=== PATIENT | female | born 1955 | race Caucasian/White ===

== ENCOUNTER 2016-12-13 19:10 | Emergency (ER) | payer MEDICAID, OTHER ==
[~2016-12-13] VITALS: Ht 170.2 cm; Wt 101.7 kg
[~2016-12-13 19:10] MED LIST: ASPI81TA82 PO; CARV12.5 PO; GABA300C3 PO; HYDR-3534 PO; LANTUS2P SC; LISI-360 PO; OMEP20TA PO; ONDA4 SL; POLY119S PO; PROM1SUP12 PR; TAB-TAB PO; XANA0.5T PO; XANA1TAB6 PO; Z.0.HUMULIN REGULARU SQ
[2016-12-13 19:19] VITALS: BP 180/92; PULSE 72; RESP 14; TEMP 98.3; O2SAT 98
== END 2016-12-13 19:55 | disposition left against medical advice (07) ==
LOC: PHED 19:10
DX: R06.02 Shortness of breath (principal)
CPT/HCPCS: 99281

== ENCOUNTER 2017-01-09 11:20 | Emergency (ER) | payer OTHER ==
[2017-01-09 11:25] VITALS: BP 170/96; PULSE 80; RESP 16; TEMP 99; O2SAT 95
[2017-01-09] MEDS ORDERED: PANTOPRAZOLE INJ 80 MG in SODIUM CHLORIDE 0.9% INJ 35 ML IV ONE (11:42)
[2017-01-09] MEDS ORDERED: PANTOPRAZOLE INJ 80 MG in SODIUM CHLORIDE 0.9% INJ 100 ML IV SCH (11:42)
[2017-01-09] MEDS ORDERED: SODIUM CHLOR 0.9% 1000 ML INJ 1,000 ML IV SCH (11:42)
[2017-01-09] MEDS ORDERED: ONDANSETRON HCL 4 MG/2 ML VIAL IVP ONE (11:45)
[2017-01-09] MEDS ORDERED: SODIUM CHLORIDE 0.9% FLUSH 10 ML FLUSH IVF PRN (11:45)
--- NOTE | 2017-01-09 11:50 | PD ---
HPI . Hematemesis Chief Complaint: GI Complaint Time Seen by Provider: 11:42 Travel History International Travel<30 days: No Contact w/Intl Traveler<30days: No Traveled to known affect area: No History of Present Illness HPI Patient presents with a three-day history of hematemesis. She states that it started out as brown emesis. Today, it is grossly bloody. She reports approximately 7-8 episodes per day. She denies any change in her stools. She denies any previous history of upper GI bleed. She is already on Protonix, 40 mg twice a day. However, she states that she has never had a previous history of hematemesis. She is not on an anticoagulant. She states that her symptoms have not been improved with Zofran. PFSH Past Medical History Anxiety: Yes Depression: Yes Cancer: Yes (colon which was treated by polypectomy) Cardiovascular Problems: Yes (CAD, HTN) Coronary Artery Disease: Yes Diabetes: Yes Diminished Hearing: No Gastrointestinal Disorders: Yes Hypertension: Yes Menopausal: Yes Past Surgical History Appendectomy: Yes Cholecystectomy: Yes Eye Surgery: Yes (cataract) Genitourinary Surgery: Yes (BLADDER SLING THEN REMOVAL AND REVISION) Hysterectomy: Yes Social History Alcohol Use: No Tobacco Use: Yes (1/2) Substance Use: No Allergies-Medications (Allergen,Severity, Reaction): Coded Allergies: Sulfa (Sulfonamide Antibiotics) (Unverified Allergy, Severe, hives, ) prednisone (Verified Allergy, Severe, HIVES/SOB, 01/09/17) Penicillins (Verified Allergy, Intermediate, RASH, 01/09/17) iodine (Unverified Allergy, Intermediate, palpitations, 01/09/17) potassium iodide (Unverified Allergy, Intermediate, palpitations, 01/09/17) povidone-iodine (Unverified Allergy, Intermediate, palpitations, 01/09/17) sodium iodide (Unverified Allergy, Intermediate, palpitations, 01/09/17) sodium iodide (Unverified Allergy, Intermediate, palpitations, 01/09/17) Reported Meds & Prescriptions Reported Meds & Active Scripts Active Reported Trulance (Plecanatide) 3 Mg Tablet Zofran Odt (Ondansetron Odt) 4 Mg Tab 4 Mg SL Q8HR PRN Carvedilol 25 Mg Tab 25 Mg PO BID Fosinopril (Fosinopril Sodium) 20 Mg Tab 20 Mg PO DAILY Pantoprazole (Pantoprazole Sodium) 40 Mg Tab 40 Mg PO BID Morphine ER (Morphine Sulfate) 15 Mg Tab 15 Mg PO BID Glipizide 10 Mg Tab 10 Mg PO DAILY Take 30 minutes before a meal Ropinirole 0.25 Mg Tab 0.25 Mg PO HS Pred Forte Opth 1% (Prednisolone Acetate Opth 1%) 1% Susp 1 Drop LEFT EYE BID Lantus Inj (Insulin Glargine) 1,000 Unit/10 Ml Vial 50 Units SQ BID Gabapentin 300 Mg Cap 300 Mg PO TID Ketorolac Opth Drops 0.5% Drops 1 Drop LEFT EYE QID Review of Systems Except as stated in HPI: all other systems reviewed are Neg General / Constitutional: Positive: Fever, Chills Respiratory: No: Shortness of Breath Gastrointestinal: Positive: Nausea, Vomiting, Abdominal Pain, Hematemesis, No: Diarrhea, Hematochezia, Changes in Bowel Habits Genitourinary: Positive: Other (vulvar irritation) Neurologic: Positive: Weakness, Dizziness Physical Exam Narrative GENERAL: Awake and alert and in no acute distress. SKIN: warm/dry. Good color. HEAD: Normocephalic. Atraumatic. EYES: Pupils equal and round. No scleral icterus. No injection or drainage. ENT: No nasal bleeding or discharge. Mucous membranes pink and moist. NECK: Trachea midline. Full range of motion without pain.. CARDIOVASCULAR: Regular rate and rhythm. Heart sounds are normal. RESPIRATORY: No accessory muscle use. Clear to auscultation. Breath sounds equal bilaterally. GASTROINTESTINAL: Abdomen soft. Nontender. Bowel sounds present. Nondistended. : Erythema of the labia minora. MUSCULOSKELETAL: No obvious deformities. NEUROLOGICAL: Awake and alert. No obvious cranial nerve deficits. Motor grossly within normal limits. Normal speech. PSYCHIATRIC: Appropriate mood and affect; insight and judgment normal. Data Data Last Documented VS Vital Signs Date Time Temp Pulse Resp B/P (MAP) Pulse Ox O2 Delivery O2 Flow Rate FiO2 01/09/17 11:25 99.0 80 16 170/96 (120) 95 Orders Orders Complete Blood Count With Diff (01/09/17 11:42) Comprehensive Metabolic Panel (01/09/17 11:42) Lipase (01/09/17 11:42) Prothrombin Time / Inr (Pt) (01/09/17 11:42) Act Partial Throm Time (Ptt) (01/09/17 11:42) Type And Screen (01/09/17 11:42) Iv Access Insert/Monitor (01/09/17 11:42) Ondansetron Inj (Zofran Inj) (01/09/17 11:45) Sodium Chlor 0.9% 1000 Ml Inj (Ns 1000 M (01/09/17 11:42) Sodium Chloride 0.9% Flush (Ns Flush) (01/09/17 11:45) Sodium Chloride 0.9... W/Pantoprazole In (01/09/17 11:42) Sodium Chloride 0.9... W/Pantoprazole In (01/09/17 11:42) Ct Abd/Pel W/O Iv Contrast (01/09/17 12:08) Fluconazole (Diflucan) (01/09/17 13:45) Labs Laboratory Tests Test 01/09/17 12:00 White Blood Count 9.3 TH/MM3 Red Blood Count 4.44 MIL/MM3 Hemoglobin 13.1 GM/DL Hematocrit 38.2 % Mean Corpuscular Volume 86.1 FL Mean Corpuscular Hemoglobin 29.6 PG Mean Corpuscular Hemoglobin Concent 34.4 % Red Cell Distribution Width 12.9 % Platelet Count 314 TH/MM3 Mean Platelet Volume 7.3 FL Neutrophils (%) (Auto) 71.1 % Lymphocytes (%) (Auto) 21.9 % Monocytes (%) (Auto) 5.7 % Eosinophils (%) (Auto) 0.8 % Basophils (%) (Auto) 0.5 % Neutrophils # (Auto) 6.7 TH/MM3 Lymphocytes # (Auto) 2.0 TH/MM3 Monocytes # (Auto) 0.5 TH/MM3 Eosinophils # (Auto) 0.1 TH/MM3 Basophils # (Auto) 0.0 TH/MM3 CBC Comment DIFF FINAL Differential Comment Prothrombin Time 11.3 SEC Prothromb Time International Ratio 1.0 RATIO Activated Partial Thromboplast Time 26.6 SEC Blood Urea Nitrogen 14 MG/DL Creatinine 0.99 MG/DL Random Glucose 225 MG/DL Total Protein 7.8 GM/DL Albumin 3.6 GM/DL Calcium Level 9.1 MG/DL Alkaline Phosphatase 120 U/L Aspartate Amino Transf (AST/SGOT) 16 U/L Alanine Aminotransferase (ALT/SGPT) 18 U/L Total Bilirubin 0.7 MG/DL Sodium Level 137 MEQ/L Potassium Level 3.9 MEQ/L Chloride Level 100 MEQ/L Carbon Dioxide Level 28.8 MEQ/L Anion Gap 8 MEQ/L Estimat Glomerular Filtration Rate 57 ML/MIN Lipase 134 U/L MDM Medical Decision Making Medical Screen Exam Complete: Yes Emergency Medical Condition: Yes Differential Diagnosis Differential diagnosis includes but is not limited to gastritis, peptic ulcer disease, coagulopathy, gastric cancer Narrative Course Patient presents complaining with hematemesis. An IV has been started. She will be given IV Protonix, bolus and drip. CT of her abdomen and pelvis is pending. Routine labs have been ordered including a type and screen. CBC & BMP Diagram 01/09/17 12:00 Total Protein 7.8, Albumin 3.6, Calcium Level 9.1, Alkaline Phosphatase 120 H, Aspartate Amino Transf (AST/SGOT) 16, Alanine Aminotransferase (ALT/SGPT) 18, Total Bilirubin 0.7 Last Impressions Abdomen/Pelvis CT 01/09/17 1208 Signed Impressions: Service Date/Time: Monday, January 09, 2017 12:31 - CONCLUSION: Negative contrast CT abdomen/pelvis. Suhail Gupta MD Vital Signs Date Time Temp Pulse Resp B/P (MAP) Pulse Ox O2 Delivery O2 Flow Rate FiO2 01/09/17 11:25 99.0 80 16 170/96 (120) 95 This patient has been hemodynamically stable. She has had no further hematemesis while here. She will be discharged home. I will give the patient a Diflucan here and have suggested that she use a topical antifungal if she has similar symptoms in the future. She is a diabetic and reports episodic itching of the external genitalia. Diagnosis Primary Impression: Hematemesis Qualified Codes: K92.0 - Hematemesis Additional Impression: Yeast vaginitis Patient Instructions: General Instructions, Hematemesis (ED) Additional Instructions: Return for profound vomiting of blood. Continue the Protonix. Add Carafate. Use a topical yeast medication such as Monistat as needed for irritation of her external genitalia. Scripts Sucralfate (Carafate) 1 Gram Tab 1 GM PO QID for Ulcer Prevention, #120 TAB 0 Refills On empty stomach Prov: Stacia Saravia MD 01/09/17 Disposition: 01 DISCHARGE HOME Condition: Stable Stacia Saravia MD Jan 09, 2017 11:50
[2017-01-09] MEDS ORDERED: GABA300C5 PO (12:09)
[2017-01-09] MEDS ORDERED: PRED1SUS LEFT EYE (12:09)
[2017-01-09] MEDS ORDERED: KETO0.5S2 LEFT EYE (12:09)
[2017-01-09] MEDS ORDERED: ROPI0.25 PO (12:09)
[2017-01-09] MEDS ORDERED: FOSI20TA PO (12:09)
[2017-01-09] MEDS ORDERED: MORP1TAB24 PO (12:09)
[2017-01-09] MEDS ORDERED: GLIP10TA6 PO (12:09)
[2017-01-09] MEDS ORDERED: ZOFR4TAB3 SL (12:09)
[2017-01-09] MEDS ORDERED: LANTUS2P SQ (12:09)
[2017-01-09] MEDS ORDERED: CARV25TA PO (12:09)
[2017-01-09] MEDS ORDERED: PANT40TA3 PO (12:09)
[2017-01-09] MEDS ORDERED: PLEC3TAB (12:09)
[2017-01-09 12:10] LABS: AUTOMATED NEUTROPHIL # 6.7 TH/MM3 (1.8-7.7); BASOPHIL % 0.5 % (0.0-2.0); EOSINOPHIL # 0.1 TH/MM3 (0-0.4); EOSINOPHIL % 0.8 % (0.0-4.0); HEMATOCRIT 38.2 % (35.0-46.0); HEMO FLAGS DIFF FINAL; LYMPH % 21.9 % (9.0-44.0); MEAN CELL VOLUME 86.1 FL (80.0-100.0); MEAN CORPUSCULAR HEMOGLOBIN 29.6 PG (27.0-34.0); MEAN CORPUSCULAR HGB CONC 34.4 % (32.0-36.0); MONO % 5.7 % (0.0-8.0); NEUT % 71.1 % (16.0-70.0); PLATELET COUNT 314 TH/MM3 (150-450); RED BLOOD COUNT 4.44 MIL/MM3 (4.00-5.30); RED CELL DISTRIBUTION WIDTH 12.9 % (11.6-17.2); WHITE BLOOD COUNT 9.3 TH/MM3 (4.0-11.0)
[2017-01-09 12:19] LABS: CHLORIDE 100 MEQ/L (98-107); POTASSIUM 3.9 MEQ/L (3.5-5.1); SODIUM (NA) 137 MEQ/L (136-145)
[2017-01-09 12:23] LABS: ANION GAP 8 MEQ/L (5-15); BICARBONATE 28.8 MEQ/L (21.0-32.0); BLOOD UREA NITROGEN 14 MG/DL (7-18)
[2017-01-09 12:24] LABS: APTT (PATIENT) 26.6 SEC (24.3-30.1); PROTHROMBIN TIME - PATIENT 11.3 SEC (9.8-11.6)
[2017-01-09 12:25] LABS: ALT (GPT) 18 U/L (10-53); AST (GOT) 16 U/L (15-37)
[2017-01-09 12:26] LABS: GLOMERULAR FILTRATION RATE 57 ML/MIN (>89)
[2017-01-09 12:27] LABS: TOTAL BILIRUBIN ADULT 0.7 MG/DL (0.2-1.0)
[2017-01-09 12:28] LABS: ALKALINE PHOSPHATASE 120 U/L (45-117)
--- NOTE | 2017-01-09 13:13 | RADRPT ---
EXAM DATE/TIME: 01/09/2017 12:31 [facility] COMPARISON: CT ABDOMEN & PELVIS W/O CONTRAST, August 17, 2014, 15:27. INDICATIONS : Vomiting blood for three days. ORAL CONTRAST: No oral contrast ingested. RADIATION DOSE: 21.96 CTDIvol (mGy) MEDICAL HISTORY : Hypertension. Diabetes. SURGICAL HISTORY : Appendectomy. Cholecystectomy.Hysterectomy.Left hip repair. ENCOUNTER: Initial ACUITY: 3 days PAIN SCALE: 0/10 LOCATION: abdomen TECHNIQUE: Volumetric scanning of the abdomen and pelvis was performed. Using automated exposure control and ad justment of the mA and/or kV according to patient size, radiation dose was kept as low as reasonably achievable to obtain optimal diagnostic quality images. DICOM format image data is available electro nically for review and comparison. FINDINGS: LOWER LUNGS: The visualized lower lungs are clear. LIVER: Homogeneous density without lesion for noncontrast technique. There is no dilation of the biliary tr ee. Cholecystectomy. SPLEEN: Normal size without lesion. PANCREAS: Within normal limits. KIDNEYS: Normal in size and shape. There is no mass, stone, or hydronephrosis. ADRENAL GLANDS: Within normal limits. VASCULAR: There is no aortic aneurysm. BOWEL/MESENTERY: No dilated loops of small or large bowel. No evidence of free fluid. ABDOMINAL WALL: Within normal limits. RETROPERITONEUM: There is no lymphadenopathy. BLADDER: No wall thickening or mass. REPRODUCTIVE: Hysterectomy. INGUINAL: There is no lymphadenopathy or hernia. MUSCULOSKELETAL: Within normal limits for patient age. CONCLUSION: Negative contrast CT abdomen/pelvis. Suhail Gupta MD on January 09, 2017 at 13:09 Board Certified Radiologist. This report was verified electronically.
[2017-01-09] MEDS ORDERED: FLUCONAZOLE 100 MG TAB PO ONE (13:45)
[2017-01-09] MEDS ORDERED: CARA1TAB6 PO (13:47)
[2017-01-09 14:10] VITALS: BP 158/82
== END 2017-01-09 14:22 | disposition home or self-care (01) ==
LOC: PHED 11:20
DX: K92.0 Hematemesis (principal); B37.3 Candidiasis of vulva and vagina; E11.9 Type 2 diabetes mellitus without complications; I10 Essential (primary) hypertension; I25.10 Atherosclerotic heart disease of native coronary artery without angina pectoris; F17.200 Nicotine dependence, unspecified, uncomplicated; Z79.4 Long term (current) use of insulin
CPT/HCPCS: 74176; 80053; 83690; 85025; 85610; 85730; 86077; 86850; 86870; 86900; 86901; 86902; 96361; 96365; 96375; 99285; C9113; J2405; J7030

== ENCOUNTER 2017-04-28 12:37 | Emergency (ER) | payer OTHER ==
[~2017-04-28] VITALS: Ht 170.2 cm; Wt 104.7 kg
[~2017-04-28 12:37] MED LIST changes: -ASPI81TA82 PO; +CARA1TAB6 PO; -CARV12.5 PO; +CARV25TA PO; +FOSI20TA PO; -GABA300C3 PO; +GABA300C5 PO; +GLIP10TA6 PO; -HYDR-3534 PO; +KETO0.5S2 LEFT EYE; -LANTUS2P SC; +LANTUS2P SQ; -LISI-360 PO; +MORP1TAB24 PO; -OMEP20TA PO; -ONDA4 SL; +PANT40TA3 PO; +PLEC3TAB; -POLY119S PO; +PRED1SUS LEFT EYE; -PROM1SUP12 PR; +ROPI0.25 PO; -TAB-TAB PO; -XANA0.5T PO; -XANA1TAB6 PO; -Z.0.HUMULIN REGULARU SQ; +ZOFR4TAB3 SL
[2017-04-28 12:40] VITALS: BP 216/83; PULSE 79; RESP 16; TEMP 97.8; O2SAT 97
[2017-04-28] MEDS ORDERED: SODIUM CHLOR 0.9% 1000 ML INJ 1,000 ML IV SCH (15:41)
[2017-04-28 15:44] VITALS: O2SAT 97
[2017-04-28] MEDS ORDERED: SODIUM CHLORIDE 0.9% FLUSH 10 ML FLUSH IV FLUSH PRN (15:45)
[2017-04-28] MEDS ORDERED: ONDANSETRON HCL 4 MG/2 ML VIAL IVP ONE (15:45)
[2017-04-28] MEDS ORDERED: MORPHINE SULFATE 4 MG/ML INJ IV PUSH ONE (15:45)
--- NOTE | 2017-04-28 15:49 | PD ---
HPI Chief Complaint: Abdominal Pain Time Seen by Provider: 15:41 Travel History International Travel<30 days: No Contact w/Intl Traveler<30days: No Traveled to known affect area: No History of Present Illness HPI 61-year-old female patient with history of CAD, hypertension, diabetes, bladder sling operation, precancerous colon polyps removed, complicated by GI bleeding, bowel ischemia, presents to the ER today because she states that she started having nausea, vomiting, lower abdominal pains, and today started having bloody stools. She states that she has had history of GI bleeding in the past. She is currently seeing Dr. Smiley. Modifying Factors: None Associated Signs & Symptoms: Bloody stools, nausea, vomiting, lower abdominal pain Risk Factors: History of GI bleed, bowel ischemia PFSH Past Medical History Anxiety: Yes Depression: Yes Cancer: Yes (colon which was treated by polypectomy) Cardiovascular Problems: Yes (CAD, HTN) Coronary Artery Disease: Yes Diabetes: Yes Patient Takes Glucophage: Yes (04/27/17) Diminished Hearing: No Gastrointestinal Disorders: Yes GERD: Yes Hypertension: Yes Influenza Vaccination: No Menopausal: Yes Past Surgical History Appendectomy: Yes Cholecystectomy: Yes Eye Surgery: Yes (cataract) Genitourinary Surgery: Yes (BLADDER SLING THEN REMOVAL AND REVISION) Hysterectomy: Yes Social History Alcohol Use: No Tobacco Use: Yes (/2) Substance Use: No Allergies-Medications (Allergen,Severity, Reaction): Coded Allergies: Sulfa (Sulfonamide Antibiotics) (Unverified Allergy, Severe, hives, ) prednisone (Verified Allergy, Severe, HIVES/SOB, 04/28/17) Penicillins (Verified Allergy, Intermediate, RASH, 04/28/17) iodine (Unverified Allergy, Intermediate, palpitations, 04/28/17) potassium iodide (Unverified Allergy, Intermediate, palpitations, 04/28/17) povidone-iodine (Unverified Allergy, Intermediate, palpitations, 04/28/17) sodium iodide (Unverified Allergy, Intermediate, palpitations, 04/28/17) sodium iodide (Unverified Allergy, Intermediate, palpitations, 04/28/17) Reported Meds & Prescriptions Reported Meds & Active Scripts Active Zofran (Ondansetron HCl) 4 Mg Tab 4 Mg PO Q6HR PRN Cipro (Ciprofloxacin HCl) 500 Mg Tab 500 Mg PO BID 7 Days Reported Trulance (Plecanatide) 3 Mg Tablet Zofran Odt (Ondansetron Odt) 4 Mg Tab 4 Mg SL Q8HR PRN Carvedilol 25 Mg Tab 25 Mg PO BID Fosinopril (Fosinopril Sodium) 20 Mg Tab 20 Mg PO DAILY Pantoprazole (Pantoprazole Sodium) 40 Mg Tab 40 Mg PO BID Glipizide 10 Mg Tab 10 Mg PO DAILY Take 30 minutes before a meal Ropinirole 0.25 Mg Tab 0.25 Mg PO HS Lantus Inj (Insulin Glargine) 1,000 Unit/10 Ml Vial 50 Units SQ BID Gabapentin 300 Mg Cap 300 Mg PO TID Ketorolac Opth Drops 0.5% Drops 1 Drop LEFT EYE QID Review of Systems Except as stated in HPI: all other systems reviewed are Neg Physical Exam Narrative GENERAL: Well-developed elderly female patient currently in mild distress. Awake and oriented 3. SKIN: Focused skin assessment warm/dry. HEAD: Atraumatic. Normocephalic. EYES: Pupils equal and round. No scleral icterus. No injection or drainage. ENT: No nasal bleeding or discharge. Mucous membranes pink and moist. NECK: Trachea midline. No JVD. CARDIOVASCULAR: Regular rate and rhythm. No murmur appreciated. RESPIRATORY: No accessory muscle use. Clear to auscultation. Breath sounds equal bilaterally. GASTROINTESTINAL: Abdomen soft, obese, mildly tender lower abdomen without guarding rebound, nondistended. Hepatic and splenic margins not palpable. RECTAL EXAM: No masses or tenderness, stool is brown. Hemoccult positive. There is a notable external hemorrhoid notable. MUSCULOSKELETAL: No obvious deformities. No clubbing. No cyanosis. No edema. NEUROLOGICAL: Awake and alert. No obvious cranial nerve deficits. Motor grossly within normal limits. Normal speech. PSYCHIATRIC: Appropriate mood and affect; insight and judgment normal. Data Data Last Documented VS Vital Signs Date Time Temp Pulse Resp B/P (MAP) Pulse Ox O2 Delivery O2 Flow Rate FiO2 04/28/17 17:05 79 20 162/86 (111) 99 Room Air 04/28/17 12:40 97.8 Orders Orders Complete Blood Count With Diff (04/28/17 15:41) Comprehensive Metabolic Panel (04/28/17 15:41) Lipase (04/28/17 15:41) Prothrombin Time / Inr (Pt) (04/28/17 15:41) Act Partial Throm Time (Ptt) (04/28/17 15:41) Urinalysis - C+S If Indicated (04/28/17 15:41) Iv Access Insert/Monitor (04/28/17 15:41) Ecg Monitoring (04/28/17 15:41) Oximetry (04/28/17 15:41) Morphine Inj (Morphine Inj) (04/28/17 15:45) Ondansetron Inj (Zofran Inj) (04/28/17 15:45) Sodium Chlor 0.9% 1000 Ml Inj (Ns 1000 M (04/28/17 15:41) Sodium Chloride 0.9% Flush (Ns Flush) (04/28/17 15:45) Lactic Acid Sepsis Protocol (04/28/17 15:41) Ct Abd/Pel W/O Iv Contrast (04/28/17 15:46) Urine Culture (04/28/17 16:50) Ed Discharge Order (04/28/17 17:55) Labs Laboratory Tests Test 04/28/17 16:02 04/28/17 16:50 White Blood Count 10.1 TH/MM3 Red Blood Count 4.43 MIL/MM3 Hemoglobin 13.3 GM/DL Hematocrit 38.8 % Mean Corpuscular Volume 87.5 FL Mean Corpuscular Hemoglobin 30.0 PG Mean Corpuscular Hemoglobin Concent 34.2 % Red Cell Distribution Width 14.2 % Platelet Count 315 TH/MM3 Mean Platelet Volume 7.9 FL Neutrophils (%) (Auto) 65.2 % Lymphocytes (%) (Auto) 25.9 % Monocytes (%) (Auto) 6.6 % Eosinophils (%) (Auto) 1.8 % Basophils (%) (Auto) 0.5 % Neutrophils # (Auto) 6.5 TH/MM3 Lymphocytes # (Auto) 2.6 TH/MM3 Monocytes # (Auto) 0.7 TH/MM3 Eosinophils # (Auto) 0.2 TH/MM3 Basophils # (Auto) 0.1 TH/MM3 CBC Comment DIFF FINAL Differential Comment Prothrombin Time 10.3 SEC Prothromb Time International Ratio 1.0 RATIO Activated Partial Thromboplast Time 24.9 SEC Blood Urea Nitrogen 14 MG/DL Creatinine 0.90 MG/DL Random Glucose 301 MG/DL Total Protein 7.9 GM/DL Albumin 3.5 GM/DL Calcium Level 9.0 MG/DL Alkaline Phosphatase 122 U/L Aspartate Amino Transf (AST/SGOT) 15 U/L Alanine Aminotransferase (ALT/SGPT) 17 U/L Total Bilirubin 0.4 MG/DL Sodium Level 136 MEQ/L Potassium Level 4.1 MEQ/L Chloride Level 100 MEQ/L Carbon Dioxide Level 27.4 MEQ/L Anion Gap 9 MEQ/L Estimat Glomerular Filtration Rate 64 ML/MIN Lactic Acid Level 1.1 mmol/L Lipase 124 U/L Urine Collection Type CLEAN CATCH Urine Color YELLOW Urine Turbidity SL CLOUDY Urine pH 5.5 Urine Specific [place] 1.025 Urine Protein TRACE mg/dL Urine Glucose (UA) 1000 OR GREATER mg/dL Urine Ketones NEG mg/dL Urine Occult Blood SMALL Urine Nitrite NEG Urine Bilirubin NEG Urine Urobilinogen 0.2 MG/DL Urine Leukocyte Esterase NEG Urine RBC 4-9 /hpf Urine WBC 9-14 /hpf Urine Squamous Epithelial Cells > 8 /hpf Urine Bacteria MOD /hpf Microscopic Urinalysis Comment CULTURE INDICATED Urine Collection Time 16:50 [facility] Medical Decision Making Medical Screen Exam Complete: Yes Emergency Medical Condition: Yes Medical Record Reviewed: Yes Interpretation(s) Laboratory Tests Test 04/28/17 16:02 04/28/17 16:50 Random Glucose 301 MG/DL (74-106) Alkaline Phosphatase 122 U/L (45-117) Estimat Glomerular Filtration Rate 64 ML/MIN (>89) Urine Glucose (UA) 1000 OR GREATER mg/dL Urine Occult Blood SMALL (NEG) Urine RBC 4-9 /hpf (0-3) Urine WBC 9-14 /hpf (0-5) Urine Squamous Epithelial Cells > 8 /hpf (0-5) Urine Bacteria MOD /hpf (NONE) Differential Diagnosis GI bleed versus mesenteric ischemia versus hemorrhoidal bleed versus diverticulitis versus colitis Narrative Course Lab work shows UTI. Lactate is normal. CAT scan did not show any signs of acute intra-abdominal processes. Hemoccult is positive. Hemoglobin is stable. Vital signs are stable in the ER. At this point, my plan would be to release her with follow-up to her GI doctor. There are no signs of mesenteric ischemia we will treat her UTI. Return for any worsening in pain or new symptoms as needed. The plan has been discussed with her and she states understanding. [facility] Point of Care Internal Pos. & Neg. Controls: Passed Fecal Specimen Occult Blood: Positive Diagnosis Primary Impression: Abdominal pain Additional Impressions: Blood in the stool UTI (urinary tract infection) Med/Other Pt SpecificInfo: Prescription(s) given Scripts Ondansetron (Zofran) 4 Mg Tab 4 MG PO Q6HR Y for NAUSEA OR VOMITING, #7 TAB 0 Refills Prov: Aleksandra Serna MD 04/28/17 Ciprofloxacin (Cipro) 500 Mg Tab 500 MG PO BID for Infection for 7 Days, #14 TAB 0 Refills Prov: Aleksandra Serna MD 04/28/17 Disposition: 01 DISCHARGE HOME Condition: Stable Aleksandra Serna MD Apr 28, 2017 15:49
[2017-04-28 16:13] LABS: AUTOMATED NEUTROPHIL # 6.5 TH/MM3 (1.8-7.7); BASOPHIL # 0.1 TH/MM3 (0-0.2); BASOPHIL % 0.5 % (0.0-2.0); EOSINOPHIL # 0.2 TH/MM3 (0-0.4); EOSINOPHIL % 1.8 % (0.0-4.0); HEMATOCRIT 38.8 % (35.0-46.0); HEMOGLOBIN 13.3 GM/DL (11.6-15.3); LYMPH % 25.9 % (9.0-44.0); LYMPHOCYTE # 2.6 TH/MM3 (1.0-4.8); MEAN CELL VOLUME 87.5 FL (80.0-100.0); MEAN CORPUSCULAR HGB CONC 34.2 % (32.0-36.0); MEAN PLATELET VOLUME 7.9 FL (7.0-11.0); MONO % 6.6 % (0.0-8.0); MONOCYTE # 0.7 TH/MM3 (0-0.9); NEUT % 65.2 % (16.0-70.0); PLATELET COUNT 315 TH/MM3 (150-450); RED BLOOD COUNT 4.43 MIL/MM3 (4.00-5.30); RED CELL DISTRIBUTION WIDTH 14.2 % (11.6-17.2); WHITE BLOOD COUNT 10.1 TH/MM3 (4.0-11.0)
[2017-04-28 16:26] LABS: CHLORIDE 100 MEQ/L (98-107); SODIUM (NA) 136 MEQ/L (136-145)
[2017-04-28 16:31] LABS: ALBUMIN 3.5 GM/DL (3.4-5.0); BICARBONATE 27.4 MEQ/L (21.0-32.0); BLOOD UREA NITROGEN 14 MG/DL (7-18); GLUCOSE,RANDOM 301 MG/DL (74-106); PROTHROMBIN TIME - PATIENT 10.3 SEC (9.8-11.6)
--- NOTE | 2017-04-28 16:31 | RADRPT ---
EXAM DATE/TIME: 04/28/2017 16:07 [facility] COMPARISON: No previous studies available for comparison. INDICATIONS : Right abdominal pain and vomiting. ORAL CONTRAST: No oral contrast ingested. RADIATION DOSE: 24.75 CTDIvol (mGy) ; Patient motion; Patient body habitus MEDICAL HISTORY : Gastroesophageal reflux disease. Diabetes mellitus type 2. Cardiovascular diseaseHypertension. SURGICAL HISTORY : Appendectomy. Cholecystectomy.Hysterectomy.Bladder sling and reversal. ENCOUNTER: Initial ACUITY: 1 day PAIN SCALE: 10/10 LOCATION: Right abdomen. TECHNIQUE: Volumetric scanning of the abdomen and pelvis was performed. Using automated exposure control and ad justment of the mA and/or kV according to patient size, radiation dose was kept as low as reasonably achievable to obtain optimal diagnostic quality images. DICOM format image data is available electro nically for review and comparison. FINDINGS: LOWER LUNGS: The visualized lower lungs are clear. LIVER: Homogeneous density without lesion. There is no dilation of the biliary tree. Cholecystectomy clips. SPLEEN: Normal size without lesion. PANCREAS: Within normal limits. KIDNEYS: Normal in size and shape. There is no mass, stone, or hydronephrosis. ADRENAL GLANDS: Within normal limits. VASCULAR: There is no aortic aneurysm. BOWEL/MESENTERY: Diverticulosis of the sigmoid colon No inflammatory changes. Appendectomy. There is no free intraper itoneal air or fluid. ABDOMINAL WALL: Within normal limits. RETROPERITONEUM: There is no lymphadenopathy. BLADDER: No wall thickening or mass. REPRODUCTIVE: Within normal limits. Uterus is absent. INGUINAL: There is no lymphadenopathy or hernia. MUSCULOSKELETAL: Scattered degenerative changes. CONCL willUSION: Diverticulosis sigmoid colon without diverticulitis. Status post appendectomy and cholecystectomy. No renal calculi or hydronephrosis. Nando Small MD on April 28, 2017 at 16:23 Board Certified Radiologist. This report was verified electronically.
[2017-04-28 16:34] LABS: ALT (GPT) 17 U/L (10-53); AST (GOT) 15 U/L (15-37); GLOMERULAR FILTRATION RATE 64 ML/MIN (>89)
[2017-04-28 16:36] LABS: TOTAL BILIRUBIN ADULT 0.4 MG/DL (0.2-1.0); TOTAL PROTEIN 7.9 GM/DL (6.4-8.2)
[2017-04-28 16:37] LABS: ALKALINE PHOSPHATASE 122 U/L (45-117)
[2017-04-28 17:05] VITALS: BP 162/86; PULSE 79; RESP 20; O2SAT 99
[2017-04-28 17:22] LABS: BILIRUBIN, URINE NEG (NEG); BLOOD, URINE SMALL (NEG); GLUCOSE,URINE 1000 OR GREATER mg/dL (NEG); KETONE, URINE NEG (NEG); NITRITE,URINE NEG (NEG); PH, URINE 5.5 (5.0-8.5); URINE COLOR YELLOW (YELLW/STRAW); URINE LEUKOCYTE ESTERASE NEG (NEG)
[2017-04-28 17:37] LABS: BACTERIA, URINE MOD /hpf; SQUAMOUS EPITHELIAL CELL URINE > 8 /hpf (0-5)
[2017-04-28] MEDS ORDERED: ZOFR4TAB PO (17:49)
[2017-04-28] MEDS ORDERED: CIPR-9 PO (17:49)
== END 2017-04-28 18:31 | disposition home or self-care (01) ==
LOC: PHED 12:37
DX: R10.30 Lower abdominal pain, unspecified (principal); K92.1 Melena; N39.0 Urinary tract infection, site not specified; B96.89 Other specified bacterial agents as the cause of diseases classified elsewhere; I25.10 Atherosclerotic heart disease of native coronary artery without angina pectoris; I10 Essential (primary) hypertension; E11.9 Type 2 diabetes mellitus without complications; K21.9 Gastro-esophageal reflux disease without esophagitis; F41.8 Other specified anxiety disorders; Z72.0 Tobacco use; Z79.4 Long term (current) use of insulin; Z87.448 Personal history of other diseases of urinary system; Z87.19 Personal history of other diseases of the digestive system
CPT/HCPCS: 74176; 80053; 81001; 83605; 83690; 85025; 85610; 85730; 87077; 87086; 87186; 96361; 96374; 96375; 99285; J2270; J2405; J7030